=== PATIENT | male | born 1985 | race Caucasian/White ===

== ENCOUNTER 2025-07-27 08:51 | Outpatient (CLI) | payer OTHER, SELFPAY | END 2025-07-27 08:52 | disposition home or self-care (01) | PROVIDERS: PCP Family Medicine; Visit Provider Family Medicine | DX: Z13.6 Encounter for screening for cardiovascular disorders (principal); Z13.9 Encounter for screening, unspecified | CPT/HCPCS: 80048; 80061 ==

== ENCOUNTER 2025-09-14 12:52 | Outpatient (CLI) | payer OTHER, SELFPAY ==
--- NOTE | 2025-09-28 12:13 | W.PM.SLEEP ---
Sleep Study Details Details Interpreting Provider: Domingo Date of Sleep Study: 09/14/25 Sleep Study Details: STUDY TYPE:? Home unattended ? BMI:? 34.96 ORDERING PROVIDER:? oCsta INDICATION:? Concern for sleep apnea ? SLEEP SUMMARY:? 363.5 minutes monitored RESPIRATORY SUMMARY:? AHI 77.4 per rule 1A, 76.1 per CMS guideline Low oxygen 73 31.1% of study oxygen less than 90% Snoring 100% PERIODIC LIMB MOVEMENTS OF SLEEP:? Not recorded CARDIAC:? Range 65-127, mean 89.4 beats per minute IMPRESSION:? Severe obstructive sleep apnea with significant hypo oxygenation. Tachycardia was also noted with a rate as high as 127 beats per minute RECOMMENDATION: Recommend in-lab titration study. An alternative would be AutoSet CPAP with very close follow-up. Further cardiac evaluation may be indicated.
== END 2025-09-14 12:53 | disposition home or self-care (01) ==
LOC: SLEEP 12:53
PROVIDERS: PCP Family Medicine; Visit Provider Family Medicine
DX: G47.33 Obstructive sleep apnea (adult) (pediatric) (principal)
CPT/HCPCS: 95806